=== PATIENT | male | born 1935 | race Caucasian/White ===

== ENCOUNTER → 2017-03-12 | Outpatient (CLI) | payer OTHER ==
[~2017-03-12] MED LIST: 'PARAFON FORTE500 M1 PO; ASPIRIN81 MG PO; CENTRUM1 TAB PO; CLINDAMYCIN150 MG PO; FISH OIL500 M1 PO; NAPROSYN500 MG PO; PRAVASTATIN; PRAVASTATIN SOD80 MG PO
[2017-03-12 10:26] LABS: BASO # 0.1 10*3/uL (0.0-0.1); BASO % 0.7 % (0.0-1.0); EOS # 0.2 10*3/uL (0.0-0.4); HEMOGLOBIN 15.4 g/dl (14.0-18.0); LYMPH # 3.1 10*3/uL (1.3-4.4); LYMPH % 37.7 % (27.0-41.0); MEAN CELL VOLUME 93.5 fl (80.0-94.0); MEAN CORPUSCULAR HGB 31.3 pg (27.0-31.0); MEAN CORPUSCULAR HGB CONC 33.5 g/dl (33.0-37.0); MEAN PLATELET VOLUME 10.7 fl (9.6-12.3); MONO # 0.8 10*3/uL (0.1-1.0); MONO % 9.3 % (3.0-9.0); NEUT # 4.1 10*3/uL (2.3-7.9); NEUT % 49.9 % (47.0-73.0); PLATELET COUNT AUTOMATED 146 10*3/uL (130-400); RED BLOOD COUNT 4.92 10*6/uL (4.50-5.90); RED CELL DISTRI WIDTH 13.2 % (0-14.5); WHITE BLOOD COUNT 8.2 10*3/uL (4.8-10.8)
[2017-03-12 11:08] LABS: ALBUMIN 3.4 gm/dl (3.1-4.5); ALKALINE PHOSPHATASE 86 U/L (45-117); BILIRUBIN, TOTAL 0.5 mg/dl (0.2-1.0); BUN 25 mg/dl (7-24); CARBON DIOXIDE 29 mmol/L (21-32); CHLORIDE 106 mmol/L (98-107); CHOLESTEROL 154 mg/dL (<200); EST GLOM FILT AFRICAN AMERICAN > 60 ml/min; GLUCOSE 92 mg/dL (65-99); HDL CHOLESTEROL 72 mg/dl (40-60); LDL CHOLESTEROL 64 mg/dL (9-159); POTASSIUM 4.4 mmol/L (3.5-5.1); SGOT/AST 23 IU/L (3-35); SGPT/ALT 27 U/L (12-78); SODIUM 142 mmol/L (136-145); TOTAL PROTEIN 7.3 gm/dL (6.4-8.2); TRIGLYCERIDES 90 mg/dl (<150); VLDL CHOLESTEROL 18 mg/dL (6-40)
[2017-03-13 08:13] LABS: PROSTATE SPECIFIC AG FREE 1.07 ng/mL; PSA % FREE 20.6 % (.)
== END | disposition home or self-care (01) ==
LOC: LAB 10:09
PROVIDERS: Internal Medicine
DX: I25.10 Atherosclerotic heart disease of native coronary artery without angina pectoris (principal); E78.00 Pure hypercholesterolemia, unspecified; N40.1 Benign prostatic hyperplasia with lower urinary tract symptoms

== ENCOUNTER → 2017-06-03 | Outpatient (CLI) | payer OTHER ==
[2017-06-03 09:03] LABS: CREATININE 0.88 mg/dL (0.70-1.30)
== END | disposition home or self-care (01) ==
LOC: CT 05-29 09:00 → LAB 03:35 → CT 09:00 → LAB 09:00
PROVIDERS: Internal Medicine
DX: K40.91 Unilateral inguinal hernia, without obstruction or gangrene, recurrent (principal); N20.0 Calculus of kidney; K76.89 Other specified diseases of liver

== ENCOUNTER 2017-12-09 20:15 | Inpatient (IN) | payer OTHER ==
[~2017-12-09] VITALS: Ht 185.4 cm; Wt 80.9 kg
--- NOTE | ~2017-12-09 | CON ---
[place], [place] REPORT OF CONSULTATION NAME: [facility]URGESS [id number] UNIT #: [id number] ROOM: 406 DOCTOR: TAM MORA MD BIRTHDATE: [birth year] DOS: 12/10/2017 REASON FOR CONSULTATION: Abnormal electrocardiogram, elevated troponin. HISTORY OF PRESENT ILLNESS: The patient is an 82-year-old man who remains very healthy and active in general. He does have a history of coronary artery disease, which was first documented in 2008 during a preoperative assessment prior to knee surgery. His electrocardiogram was abnormal. A stress test showed inferoapical ischemia with an ejection fraction of 56%. Cardiac catheterization showed modest mid LAD stenosis with a 70% stenosis of the proximal circumflex and diffuse disease of the right coronary artery. There were extensive left to right collaterals present. The right coronary artery was not amenable to percutaneous revascularization and the patient had no ischemic symptoms. He received a bare metal stent to the proximal circumflex and subsequently underwent knee replacement without complications. He has remained asymptomatic since that time. He denies any chest pain. Recently, he has been under considerable stress because of his 's illness. She has esophageal cancer. They have taken many trips to [place] for diagnosis and therapy of her condition, which continues to be active. The patient was otherwise well until about 4 days ago when he began having symptoms of congestion, cough and dyspnea. Over the last few days this did worsen. Yesterday, he was so weak that he could not get out of bed even though he had to go to the bathroom. He slid to the floor and could not get off the floor. A neighbor helped him back into the bed, but later when he needed the use the toilet again, once again he was too weak to get out of bed, therefore emergency medical services were called. He was brought to the Emergency Room where his white count was elevated at 14,500, hemoglobin was normal at 15.7. His temperature went as high as 102.8. A chest x-ray did show left lingular and left lower lobe pneumonia and he was hospitalized. His laboratory studies also did show a mild elevation in troponin. His electrocardiogram was interpreted as showing a left bundle-branch block and therefore Cardiology was consulted. Overnight, the patient has been given fluids and antibiotics and does feel better. He states that he has no chest pain. His cough is minimal and his sputum production is slight. He denies any palpitations, lightheadedness or syncope and he thinks that his strength is improving. His initial troponin level was 0.066 and has increased to 0.149 overnight. PAST MEDICAL HISTORY: Includes: 1. Hyperlipidemia. 2. Coronary artery disease, first documented in 2008 when he presented with an asymptomatic abnormal preoperative EKG. 3. Stress test showing inferoapical ischemia with ejection fraction 56% in 2009. 4. Cardiac catheterization in 2009 showed a 50-60% mid LAD stenosis with a 70% stenosis of the proximal circumflex. There was severe diffuse disease of the [place], [place] REPORT OF CONSULTATION NAME: LEATHA BURGESS UNIT #: [id number] ROOM: 406 DOCTOR: TAM MORA MD BIRTHDATE: [birth year] right coronary artery, leading to a total occlusion of the right PDA, extensive left to right collaterals were present. The patient underwent elective bare metal stenting to the proximal circumflex. 5. Uneventful bilateral knee replacements, 2009. 6. Stress test, 05/30/2014 showed normal wall motion and overall left ventricular systolic function. The patient did have inferior, inferoseptal, inferolateral and apical ischemia, but this was consistent with his coronary anatomy and he was managed medically. MEDICATIONS: Prior to this admission: Aspirin 81 mg per day, Tessalon Perles 100 mg q. 8 hours, multivitamin once a day, omega-3 fish oil 500 mg daily, pravastatin 80 mg at bedtime and prednisone 20 mg b.i.d. ALLERGIES: He lists an allergy to VICODIN (HYDROCODONE). REVIEW OF SYSTEMS: The patient denies diplopia or loss of vision. He is generally weak, but denies focal weakness. He denies syncope or lightheadedness. He does have some chest congestion and a minimally productive cough. He denies fevers or chills. He denies orthopnea or PND. He denies any nausea, but he does have decreased appetite. He denies any vomiting, hemoptysis or hematemesis. He denies change in bowel or bladder habits and denies any blood in his stools or urine. He denies any skin rashes. He denies peripheral edema. He denies any heat or cold intolerance. He denies polydipsia or polyuria. The remainder of the review of systems is negative except as noted above. FAMILY HISTORY: The patient's father of unknown causes. His mother of cancer. A brother and sister both have heart disease. SOCIAL HISTORY: The patient is and lives with his . She currently is being treated for esophageal cancer. He does not consume alcohol and does not smoke or use illicit drugs. PHYSICAL EXAMINATION: GENERAL: The patient is a well-nourished white male who looks younger than his stated age. VITAL SIGNS: Pulse is 73 and regular, blood pressure is 130/60. He is afebrile. He weighs 80.8 kg and has a body mass index of 23.5. HEENT: Normocephalic and atraumatic. Extraocular muscles are intact. Sclerae are clear. Pupils are equal, round and react to light. The oral mucosa is moist. Tongue is midline. NECK: Supple. He has no jugular distention. Carotids are full. I heard no bruits. He had no neck or supraclavicular masses. No thyromegaly. LUNGS: Respirations are unlabored. His chest is clear superiorly. He does have a few crackles at the bases bilaterally. I heard no wheezes. He had no presacral edema or chest wall tenderness. HEART: Has a regular rhythm. He has a fourth heart sound, but no third heart sound or murmur. The PMI is not displaced. There is no precordial heave, lift or thrill. ABDOMEN: Soft and normally active without masses, organomegaly or bruits. [place], [place] REPORT OF CONSULTATION NAME: [facility]URGESS [facility]: [id number] UNIT #: [id number] ROOM: [facility] DOCTOR: TAM MORA MD BIRTHDATE: [birth year] EXTREMITIES: Showed no clubbing, cyanosis or edema. There is no Homans sign. Pedal pulses are full and equal bilaterally. LABORATORY DATA: I reviewed his electrocardiogram, it shows a nonspecific intraventricular conduction delay, which is similar to what was seen when I last saw him in the office on 10/10/2016. IMPRESSIONS: 1. Left lower lobe and lingular pneumonia. 2. Elevated troponin, most likely this is due to demand ischemia from his pneumonia. 3. Coronary artery disease with diffuse right coronary artery stenosis and occlusion of the right posterior descending artery. The patient has an extensive collateral network. He did receive an angioplasty to the circumflex and now is being managed medically. 4. Hyperlipidemia. PLAN: I think that the primary problem for this hospitalization is pneumonia and is being treated appropriately. We will continue to observe him in the hospital, but no acute cardiac workup or change in his management is indicated at this time. We thank the hospitalist physicians for asking our advice regarding his care. TAM MORA MD CM:CONSTR:REPORT OF CONSULTATION 0947 12/10/17 1012 interface
[2017-12-09 20:22] VITALS: BP 151/73
[2017-12-09] MEDS ORDERED: PREDNISONE20 M1 PO (20:24)
[2017-12-09 21:12] LABS: HEMATOCRIT 46.2 % (42.0-52.0); HEMOGLOBIN 15.7 g/dl (14.0-18.0); MEAN CORPUSCULAR HGB 31.3 pg (27.0-31.0); MEAN PLATELET VOLUME 10.7 fl (9.6-12.3); PLATELET COUNT AUTOMATED 115 10*3/uL (130-400); RED BLOOD COUNT 5.02 10*6/uL (4.50-5.90); RED CELL DISTRI WIDTH 13.5 % (0-14.5); WHITE BLOOD COUNT 14.5 10*3/uL (4.8-10.8)
[2017-12-09 21:30] LABS: ALBUMIN 3.4 gm/dl (3.1-4.5); ALKALINE PHOSPHATASE 82 U/L (45-117); BUN 28 mg/dl (7-24); CHLORIDE 101 mmol/L (98-107); CREATININE 1.25 mg/dL (0.70-1.30); POTASSIUM 3.7 mmol/L (3.5-5.1); SGOT/AST 51 IU/L (3-35); SGPT/ALT 30 U/L (12-78); SODIUM 137 mmol/L (136-145); TOTAL PROTEIN 7.5 gm/dL (6.4-8.2)
[2017-12-09 21:32] VITALS: BP 136/61
[2017-12-09 21:34] LABS: TROPONIN I 0.066 ng/ml (<0.045)
[2017-12-09 21:35] LABS: TOTAL CELLS COUNTED 100 #CELLS
[2017-12-09 21:38] LABS: BURR CELLS FEW; PLATELET SUFFICIENCY LOW (NORMAL); POLYCHROMASIA SLIGHT
[2017-12-09 21:43] VITALS: BP 150/66
[2017-12-09 22:20] VITALS: BP 143/68
[2017-12-09 22:52] VITALS: BP 137/77
[2017-12-09 23:32] VITALS: BP 128/61
[2017-12-10] VITALS: BP 128/68
[2017-12-10 01:00] VITALS: BP 120/80
[2017-12-10 02:53] LABS: BASO % 0.2 % (0.0-1.0); LYMPH % 17.4 % (27.0-41.0); MEAN CELL VOLUME 92.5 fl (80.0-94.0); MEAN CORPUSCULAR HGB CONC 34.6 g/dl (33.0-37.0); MEAN PLATELET VOLUME 10.9 fl (9.6-12.3); MONO # 1.1 10*3/uL (0.1-1.0); MONO % 9.6 % (3.0-9.0); NEUT # 8.3 10*3/uL (2.3-7.9); NEUT % 72.5 % (47.0-73.0); PLATELET COUNT AUTOMATED 97 10*3/uL (130-400); RED BLOOD COUNT 4.25 10*6/uL (4.50-5.90); RED CELL DISTRI WIDTH 13.3 % (0-14.5); WHITE BLOOD COUNT 11.4 10*3/uL (4.8-10.8)
[2017-12-10 02:55] LABS: HEMATOCRIT 39.3 % (42.0-52.0); HEMOGLOBIN 13.6 g/dl (14.0-18.0)
[2017-12-10 03:08] LABS: ALBUMIN 2.5 gm/dl (3.1-4.5); ALKALINE PHOSPHATASE 62 U/L (45-117); BUN 26 mg/dl (7-24); CHLORIDE 107 mmol/L (98-107); CREATININE 1.01 mg/dL (0.70-1.30); PHOSPHOROUS 3.4 mg/dL (2.5-4.9); POTASSIUM 3.5 mmol/L (3.5-5.1); SGOT/AST 63 IU/L (3-35); SGPT/ALT 27 U/L (12-78); SODIUM 140 mmol/L (136-145); TOTAL PROTEIN 5.8 gm/dL (6.4-8.2)
[2017-12-10 03:16] LABS: THYROID STIM HORMONE (HS) 0.275 uIU/ml (0.358-4.75)
[2017-12-10] MEDS ORDERED: TESSALON PERLE100 MG PO (07:27)
[2017-12-10 07:31] LABS: VITAMIN D, 25-HYDROXY 28.8 ng/mL (30-100)
[2017-12-10 08:00] VITALS: BP 130/59
[2017-12-10 12:00] VITALS: BP 123/53
[2017-12-10 16:00] VITALS: BP 119/56
[2017-12-10 20:08] VITALS: BP 133/51
[2017-12-11] VITALS: BP 125/68
[2017-12-11 06:25] LABS: BASO % 0.1 % (0.0-1.0); HEMATOCRIT 38.7 % (42.0-52.0); HEMOGLOBIN 13.1 g/dl (14.0-18.0); LYMPH # 1.7 10*3/uL (1.3-4.4); LYMPH % 11.3 % (27.0-41.0); MEAN CELL VOLUME 92.1 fl (80.0-94.0); MEAN CORPUSCULAR HGB 31.2 pg (27.0-31.0); MEAN CORPUSCULAR HGB CONC 33.9 g/dl (33.0-37.0); MEAN PLATELET VOLUME 11.4 fl (9.6-12.3); MONO % 7.1 % (3.0-9.0); NEUT # 11.8 10*3/uL (2.3-7.9); NEUT % 80.9 % (47.0-73.0); PLATELET COUNT AUTOMATED 98 10*3/uL (130-400); RED CELL DISTRI WIDTH 13.6 % (0-14.5); WHITE BLOOD COUNT 14.5 10*3/uL (4.8-10.8)
[2017-12-11 06:55] LABS: ALBUMIN 2.3 gm/dl (3.1-4.5); CHLORIDE 110 mmol/L (98-107); POTASSIUM 3.1 mmol/L (3.5-5.1); SODIUM 143 mmol/L (136-145)
[2017-12-11 07:04] LABS: ALKALINE PHOSPHATASE 61 U/L (45-117); BUN 30 mg/dl (7-24); CREATININE 0.86 mg/dL (0.70-1.30); FREE T4 1.35 ng/dl (0.76-1.46); SGOT/AST 82 IU/L (3-35); SGPT/ALT 44 U/L (12-78); TOTAL PROTEIN 5.9 gm/dL (6.4-8.2)
[2017-12-11 08:00] VITALS: BP 127/55
[2017-12-11 12:00] VITALS: BP 146/80
[2017-12-11 16:00] VITALS: BP 156/74
[2017-12-11 20:00] VITALS: BP 143/61
[2017-12-12] VITALS: BP 140/61
[2017-12-12 07:02] LABS: BASO % 0.3 % (0.0-1.0); HEMATOCRIT 38.9 % (42.0-52.0); HEMOGLOBIN 13.6 g/dl (14.0-18.0); LYMPH # 1.1 10*3/uL (1.3-4.4); LYMPH % 8.8 % (27.0-41.0); MEAN CELL VOLUME 91.7 fl (80.0-94.0); MEAN CORPUSCULAR HGB 32.1 pg (27.0-31.0); MEAN PLATELET VOLUME 11.3 fl (9.6-12.3); MONO # 0.7 10*3/uL (0.1-1.0); MONO % 5.6 % (3.0-9.0); NEUT % 83.9 % (47.0-73.0); PLATELET COUNT AUTOMATED 110 10*3/uL (130-400); RED BLOOD COUNT 4.24 10*6/uL (4.50-5.90); RED CELL DISTRI WIDTH 13.8 % (0-14.5); WHITE BLOOD COUNT 11.9 10*3/uL (4.8-10.8)
[2017-12-12 07:27] LABS: ALBUMIN 2.5 gm/dl (3.1-4.5); BUN 29 mg/dl (7-24); CHLORIDE 109 mmol/L (98-107); POTASSIUM 3.9 mmol/L (3.5-5.1); SGOT/AST 58 IU/L (3-35); SODIUM 144 mmol/L (136-145)
[2017-12-12 07:29] LABS: ALKALINE PHOSPHATASE 63 U/L (45-117); CREATININE 0.74 mg/dL (0.70-1.30); SGPT/ALT 51 U/L (12-78); TOTAL PROTEIN 6.2 gm/dL (6.4-8.2)
[2017-12-12 08:00] VITALS: BP 157/80
[2017-12-12] MEDS ORDERED: OMNICEF300 MG PO (09:44)
[2017-12-12] MEDS ORDERED: FLONASE ALLERG9.9 ML NAS (09:44)
[2017-12-12] MEDS ORDERED: AZITHROMYCIN500 M2 PO (09:44)
[2017-12-12] MEDS ORDERED: PREDNISONE10 MG PO (09:44)
[2017-12-12 12:00] VITALS: BP 151/90
== END 2017-12-12 14:32 | disposition home or self-care (01) | DRG 871 ==
LOC: ED 20:15 → 4E 22:54 → EDHOLD 22:54 → 4E 23:13
PROVIDERS: Internal Medicine; Internal Medicine Hospice and Palliative Medicine; Nurse Practitioner Family
DX: A41.9 Sepsis, unspecified organism (principal); I21.A1 Myocardial infarction type 2; J15.6 Pneumonia due to other Gram-negative bacteria; E87.2 Acidosis; D69.6 Thrombocytopenia, unspecified; E86.0 Dehydration; D64.9 Anemia, unspecified; E44.1 Mild protein-calorie malnutrition; I44.7 Left bundle-branch block, unspecified; Z68.23 Body mass index [BMI] 23.0-23.9, adult; R65.20 Severe sepsis without septic shock; R74.8 Abnormal levels of other serum enzymes; I25.10 Atherosclerotic heart disease of native coronary artery without angina pectoris; E78.00 Pure hypercholesterolemia, unspecified; R73.9 Hyperglycemia, unspecified; E55.9 Vitamin D deficiency, unspecified; E87.6 Hypokalemia; I10 Essential (primary) hypertension; Z96.653 Presence of artificial knee joint, bilateral; Z96.1 Presence of intraocular lens; E78.5 Hyperlipidemia, unspecified; Z88.8 Allergy status to other drugs, medicaments and biological substances; Z79.899 Other long term (current) drug therapy; Z79.82 Long term (current) use of aspirin; Z98.61 Coronary angioplasty status; Z98.42 Cataract extraction status, left eye; Z98.41 Cataract extraction status, right eye; Z82.49 Family history of ischemic heart disease and other diseases of the circulatory system; Z80.8 Family history of malignant neoplasm of other organs or systems

== ENCOUNTER → 2018-03-06 | Outpatient (CLI) | payer OTHER ==
[~2018-03-06] MED LIST changes: +AZITHROMYCIN500 M2 PO; +CIPRO250 MG PO; +CIPRO500 MG PO; +FISH OIL 1,0001 EAC5 PO; -FISH OIL500 M1 PO; +FLONASE ALLERG9.9 ML NAS; +OMNICEF300 MG PO; +PREDNISONE10 MG PO; +PREDNISONE20 M1 PO; +Percocet 325 MG1 TAB PO; +TESSALON PERLE100 MG PO
[2018-03-06 11:44] LABS: BASO # 0.1 10*3/uL (0.0-0.1); BASO % 0.8 % (0.0-1.0); EOS # 0.2 10*3/uL (0.0-0.4); EOS % 2.4 % (1.0-4.0); HEMATOCRIT 46.3 % (42.0-52.0); HEMOGLOBIN 15.4 g/dl (14.0-18.0); LYMPH # 2.9 10*3/uL (1.3-4.4); LYMPH % 34.8 % (27.0-41.0); MEAN CELL VOLUME 95.1 fl (80.0-94.0); MEAN CORPUSCULAR HGB 31.6 pg (27.0-31.0); MEAN CORPUSCULAR HGB CONC 33.3 g/dl (33.0-37.0); MEAN PLATELET VOLUME 10.7 fl (9.6-12.3); MONO # 0.8 10*3/uL (0.1-1.0); NEUT # 4.4 10*3/uL (2.3-7.9); NEUT % 51.9 % (47.0-73.0); PLATELET COUNT AUTOMATED 134 10*3/uL (130-400); RED BLOOD COUNT 4.87 10*6/uL (4.50-5.90); RED CELL DISTRI WIDTH 13.4 % (0-14.5); WHITE BLOOD COUNT 8.4 10*3/uL (4.8-10.8)
[2018-03-06 11:55] LABS: BILIRUBIN NEGATIVE (NEGATIVE); BLOOD 3+ (NEGATIVE); CLARITY CLOUDY (CLEAR); COLOR YELLOW (YELLOW); GLUCOSE NEGATIVE (NEGATIVE); KETONE NEGATIVE (NEGATIVE); LEUKO ESTERASE NEGATIVE (NEGATIVE); NITRITE NEGATIVE (NEGATIVE); UROBILINOGEN 0.2 E.U./dl (0.2-1.0)
[2018-03-06 12:09] LABS: INTERNATIONAL NORM RATIO 0.9 (2.0-3.5)
[2018-03-06 12:10] LABS: BUN 21 mg/dl (7-24); CHLORIDE 106 mmol/L (98-107); CREATININE 0.92 mg/dL (0.70-1.30); POTASSIUM 4.6 mmol/L (3.5-5.1); SODIUM 142 mmol/L (136-145)
[2018-03-06 12:27] LABS: RBC 31-40 rbc/hpf (0-2)
[2018-03-06 12:28] LABS: BACTERIA TRACE
== END | disposition home or self-care (01) ==
LOC: LAB 09:36
PROVIDERS: Surgery
DX: R79.89 Other specified abnormal findings of blood chemistry (principal); Z98.890 Other specified postprocedural states

== ENCOUNTER → 2018-03-12 | Day surgery (SDC) | payer OTHER ==
[2018-03-12] VITALS (8 sets, daily range): BP systolic 115–148; BP diastolic 57–87
[~2018-03-12] VITALS: Ht 185.4 cm; Wt 77.6 kg
--- NOTE | ~2018-03-12 | O ---
[place], [place] OPERATIVE NOTE [id number] UNIT #: [id number] ROOM: DOCTOR: GANESH AMBRIZ MD BIRTHDATE: [birth year] DOS: 03/12/2018 PREOPERATIVE DIAGNOSIS: Right inguinal hernia. POSTOPERATIVE DIAGNOSIS: Right inguinal hernia. PROCEDURE: Right inguinal hernia repair with plug (medium). SURGEON: Ganesh Ambriz MD COACH OPERATOR: GIBSON. ANESTHESIA: General. INDICATIONS: This is an 83-year-old gentleman with a history of a right inguinal hernia, who is here for the above-mentioned procedure. The procedure and its complications were explained to the patient in detail preoperatively. Complications that were discussed included but were not limited to, bleeding, recurrence, prolonged postoperative pain, damage to underlying vital structures and infection. He agreed to proceed. DESCRIPTION OF PROCEDURE: After identifying the patient, the patient was brought to the operating suite and laid in the supine position. After general anesthesia was induced, a time-out procedure was called, and the parts were then painted and draped in the usual sterile fashion. An incision in the right groin was marked parallel to the right inguinal ligament. The incision was made with the help of a knife and deepened in layers. The external oblique aponeurosis was incised in the line of its fibers. The cord structures were identified and encircled with the help of Donavon drain. Upon further dissection, an incomplete hernial sac was identified, which was dissected away from the cord structures. It was then transfixed with the help of a 3-0 Vicryl suture and the excess sac was then incised and sent for histopathological diagnosis. The remnant of the sac was allowed to retract back into the abdominal cavity. A medium plug was then placed in the internal ring. At this point, the weak floor of the inguinal canal was strengthened by approximating the upturned part of the inguinal ligament inferiorly to the conjoined tendon superiorly with the help of #1 Prolene in an interrupted fashion. Thereafter, the cord structures were replaced back into the inguinal canal after the Donavon drain was removed. The external oblique aponeurosis was approximated with the help of 0 Vicryl in a running fashion. The subcutaneous tissue was approximated with the help of 3-0 Vicryl in a running fashion and the edges of the skin were approximated with the help of 4-0 Vicryl in a subcuticular running fashion. Dressings were placed. The patient tolerated the procedure well and was extubated uneventfully and brought back to the recovery in a stable fashion. There were no complications. Dr. Ganesh Ambriz, the attending surgeon, was present throughout the operating case. [place], [place] OPERATIVE NOTE NAME: LEATHA BURGESS UNIT #: [id number] ROOM: DOCTOR: GANESH AMBRIZ MD BIRTHDATE: [birth year] Ganesh Ambriz MD CM:OPRECORD:OPERATIVE NOTE 1124 1218 GANESH AMBRIZ MD 03/12/18 1217 interface
== END | disposition home or self-care (01) ==
LOC: SDC 03-06 10:15
DX: K40.90 Unilateral inguinal hernia, without obstruction or gangrene, not specified as recurrent (principal); I25.10 Atherosclerotic heart disease of native coronary artery without angina pectoris; Z98.890 Other specified postprocedural states; Z79.899 Other long term (current) drug therapy; Z95.5 Presence of coronary angioplasty implant and graft; E78.00 Pure hypercholesterolemia, unspecified; Z96.653 Presence of artificial knee joint, bilateral; Z82.49 Family history of ischemic heart disease and other diseases of the circulatory system; Z88.8 Allergy status to other drugs, medicaments and biological substances

== ENCOUNTER 2018-03-18 11:51 | Emergency (ER) | payer OTHER ==
[~2018-03-18] VITALS: Ht 185.4 cm; Wt 78.0 kg
[~2018-03-18 11:51] MED LIST changes: -CIPRO250 MG PO; -CIPRO500 MG PO
[2018-03-18 12:32] LABS: BILIRUBIN NEGATIVE (NEGATIVE); BLOOD 3+ (NEGATIVE); CLARITY CLOUDY (CLEAR); COLOR YELLOW (YELLOW); GLUCOSE NEGATIVE (NEGATIVE); KETONE 1+ (NEGATIVE); LEUKO ESTERASE 1+ (NEGATIVE); NITRITE NEGATIVE (NEGATIVE); UROBILINOGEN 0.2 E.U./dl (0.2-1.0)
[2018-03-18 13:08] LABS: RBC TNTC rbc/hpf (0-2)
[2018-03-18 13:09] LABS: BACTERIA 1+
[2018-03-18] MEDS ORDERED: CIPRO250 MG PO (13:58)
== END 2018-03-18 14:38 | disposition home or self-care (01) ==
LOC: ED 11:51
PROVIDERS: Nurse Practitioner Family
DX: R33.9 Retention of urine, unspecified (principal); Z88.8 Allergy status to other drugs, medicaments and biological substances; Z79.899 Other long term (current) drug therapy; Z95.5 Presence of coronary angioplasty implant and graft; Z96.653 Presence of artificial knee joint, bilateral

== ENCOUNTER 2018-03-26 11:04 | Emergency (ER) | payer OTHER ==
[~2018-03-26] VITALS: Ht 185.4 cm; Wt 75.3 kg
[~2018-03-26 11:04] MED LIST changes: +CIPRO250 MG PO
[2018-03-26 12:03] LABS: BILIRUBIN NEGATIVE (NEGATIVE); BLOOD 3+ (NEGATIVE); CLARITY CLOUDY (CLEAR); COLOR YELLOW (YELLOW); GLUCOSE NEGATIVE (NEGATIVE); KETONE NEGATIVE (NEGATIVE); LEUKO ESTERASE NEGATIVE (NEGATIVE); NITRITE NEGATIVE (NEGATIVE); SPECIFIC GRAVITY 1.015 (1.005-1.030); UROBILINOGEN 0.2 E.U./dl (0.2-1.0)
[2018-03-26 12:13] LABS: BASO # 0.1 10*3/uL (0.0-0.1); BASO % 0.6 % (0.0-1.0); EOS # 0.2 10*3/uL (0.0-0.4); EOS % 1.8 % (1.0-4.0); HEMATOCRIT 43.5 % (42.0-52.0); HEMOGLOBIN 14.5 g/dl (14.0-18.0); LYMPH # 2.2 10*3/uL (1.3-4.4); LYMPH % 22.3 % (27.0-41.0); MEAN CELL VOLUME 94.2 fl (80.0-94.0); MEAN CORPUSCULAR HGB 31.4 pg (27.0-31.0); MEAN CORPUSCULAR HGB CONC 33.3 g/dl (33.0-37.0); MONO # 0.9 10*3/uL (0.1-1.0); NEUT # 6.4 10*3/uL (2.3-7.9); PLATELET COUNT AUTOMATED 162 10*3/uL (130-400); RED BLOOD COUNT 4.62 10*6/uL (4.50-5.90); RED CELL DISTRI WIDTH 12.8 % (0-14.5); WHITE BLOOD COUNT 9.7 10*3/uL (4.8-10.8)
[2018-03-26] MEDS ORDERED: CIPRO500 MG PO (12:15)
[2018-03-26 12:27] LABS: ALBUMIN 3.2 gm/dl (3.1-4.5); ALKALINE PHOSPHATASE 80 U/L (45-117); BUN 38 mg/dl (7-24); CHLORIDE 110 mmol/L (98-107); POTASSIUM 3.9 mmol/L (3.5-5.1); SGOT/AST 13 IU/L (3-35); SGPT/ALT 22 U/L (12-78); SODIUM 146 mmol/L (136-145); TOTAL PROTEIN 6.8 gm/dL (6.4-8.2)
[2018-03-26 12:30] LABS: RBC TNTC rbc/hpf (0-2)
[2018-03-26 12:31] LABS: BACTERIA 1+
== END 2018-03-26 12:47 | disposition home or self-care (01) ==
LOC: ED 11:04
PROVIDERS: Nurse Practitioner
DX: R33.9 Retention of urine, unspecified (principal); Z88.5 Allergy status to narcotic agent; Z79.82 Long term (current) use of aspirin; Z79.899 Other long term (current) drug therapy

== ENCOUNTER → 2018-03-31 | Outpatient (CLI) | payer OTHER ==
[~2018-03-31] MED LIST changes: +CIPRO500 MG PO
== END | disposition home or self-care (01) ==
LOC: CT 14:45
DX: K57.30 Diverticulosis of large intestine without perforation or abscess without bleeding (principal); N20.0 Calculus of kidney; N32.9 Bladder disorder, unspecified

== ENCOUNTER 2018-04-17 11:00 | Emergency (ER) | payer OTHER ==
[~2018-04-17] VITALS: Ht 185.4 cm; Wt 77.1 kg
[2018-04-17 11:19] LABS: BILIRUBIN 1+ (NEGATIVE); BLOOD 3+ (NEGATIVE); CLARITY CLOUDY (CLEAR); GLUCOSE NEGATIVE (NEGATIVE); KETONE TRACE (NEGATIVE); LEUKO ESTERASE 2+ (NEGATIVE); NITRITE POSITIVE (NEGATIVE); SPECIFIC GRAVITY 1.015 (1.005-1.030)
[2018-04-17 11:23] LABS: COLOR RED (YELLOW)
[2018-04-17 11:30] LABS: BACTERIA 4+
[2018-04-17 11:31] LABS: RBC TNTC rbc/hpf (0-2)
[2018-04-17 11:56] LABS: BASO % 0.4 % (0.0-1.0); EOS # 0.3 10*3/uL (0.0-0.4); EOS % 3.7 % (1.0-4.0); HEMATOCRIT 40.6 % (42.0-52.0); HEMOGLOBIN 13.4 g/dl (14.0-18.0); LYMPH # 2.6 10*3/uL (1.3-4.4); LYMPH % 28.2 % (27.0-41.0); MEAN CELL VOLUME 93.5 fl (80.0-94.0); MEAN CORPUSCULAR HGB 30.9 pg (27.0-31.0); MEAN PLATELET VOLUME 11.1 fl (9.6-12.3); MONO # 1.1 10*3/uL (0.1-1.0); MONO % 11.4 % (3.0-9.0); NEUT # 5.2 10*3/uL (2.3-7.9); PLATELET COUNT AUTOMATED 122 10*3/uL (130-400); RED BLOOD COUNT 4.34 10*6/uL (4.50-5.90); RED CELL DISTRI WIDTH 12.9 % (0-14.5); WHITE BLOOD COUNT 9.3 10*3/uL (4.8-10.8)
[2018-04-17 12:13] LABS: ALBUMIN 3.2 gm/dl (3.1-4.5); ALKALINE PHOSPHATASE 73 U/L (45-117); BUN 19 mg/dl (7-24); CHLORIDE 105 mmol/L (98-107); CREATININE 0.78 mg/dL (0.70-1.30); POTASSIUM 3.9 mmol/L (3.5-5.1); SGOT/AST 15 IU/L (3-35); SGPT/ALT 17 U/L (12-78); SODIUM 140 mmol/L (136-145); TOTAL PROTEIN 6.4 gm/dL (6.4-8.2)
== END 2018-04-17 11:31 | disposition home or self-care (01) ==
LOC: ED 11:00
PROVIDERS: Nurse Practitioner Family
DX: R31.9 Hematuria, unspecified (principal); I25.10 Atherosclerotic heart disease of native coronary artery without angina pectoris; E78.00 Pure hypercholesterolemia, unspecified; Z88.6 Allergy status to analgesic agent; Z79.899 Other long term (current) drug therapy

== ENCOUNTER → 2019-01-27 | Outpatient (CLI) | payer OTHER ==
--- NOTE | ~2019-01-27 | EKG ---
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
[2019-01-27 11:48] LABS: BILIRUBIN NEGATIVE (NEGATIVE); BLOOD 3+ (NEGATIVE); CLARITY SL CLOUDY (CLEAR); COLOR YELLOW (YELLOW); GLUCOSE NEGATIVE (NEGATIVE); KETONE TRACE (NEGATIVE); LEUKO ESTERASE 2+ (NEGATIVE); NITRITE POSITIVE (NEGATIVE); SPECIFIC GRAVITY 1.015 (1.005-1.030); UROBILINOGEN 0.2 E.U./dl (0.2-1.0)
[2019-01-27 11:49] LABS: BASO # 0.1 10*3/uL (0.0-0.1); BASO % 0.7 % (0.0-1.0); EOS # 0.1 10*3/uL (0.0-0.4); EOS % 1.6 % (1.0-4.0); HEMATOCRIT 46.6 % (42.0-52.0); HEMOGLOBIN 15.5 g/dl (14.0-18.0); LYMPH # 2.6 10*3/uL (1.3-4.4); LYMPH % 31.6 % (27.0-41.0); MEAN CELL VOLUME 94.7 fl (80.0-94.0); MEAN CORPUSCULAR HGB 31.5 pg (27.0-31.0); MEAN CORPUSCULAR HGB CONC 33.3 g/dl (33.0-37.0); MEAN PLATELET VOLUME 11.2 fl (9.6-12.3); MONO # 0.9 10*3/uL (0.1-1.0); MONO % 10.4 % (3.0-9.0); NEUT # 4.5 10*3/uL (2.3-7.9); NEUT % 55.5 % (47.0-73.0); PLATELET COUNT AUTOMATED 140 10*3/uL (130-400); RED BLOOD COUNT 4.92 10*6/uL (4.50-5.90); RED CELL DISTRI WIDTH 13.4 % (0-14.5); WHITE BLOOD COUNT 8.2 10*3/uL (4.8-10.8)
[2019-01-27 11:58] LABS: ACT PARTIAL THROMBO TIME 23.4 SECONDS (20.8-31.5)
[2019-01-27 12:18] LABS: ALBUMIN 3.3 gm/dl (3.1-4.5); ALKALINE PHOSPHATASE 86 U/L (45-117); BUN 19 mg/dl (7-24); CHLORIDE 107 mmol/L (98-107); CREATININE 0.95 mg/dL (0.70-1.30); POTASSIUM 4.2 mmol/L (3.5-5.1); SGOT/AST 21 IU/L (3-35); SGPT/ALT 25 U/L (12-78); SODIUM 141 mmol/L (136-145); TOTAL PROTEIN 7.1 gm/dL (6.4-8.2)
[2019-01-27 12:19] LABS: HDL CHOLESTEROL 75 mg/dl (40-60)
[2019-01-27 12:21] LABS: CHOLESTEROL 168 mg/dL (<200); LDL CHOLESTEROL 79 mg/dL (9-159); TRIGLYCERIDES 71 mg/dl (<150); VLDL CHOLESTEROL 14 mg/dL (6-40)
[2019-01-27 13:05] LABS: BACTERIA 3+; EPITHELIAL CELLS 15-20; RBC 41-50 rbc/hpf (0-2); WBC TNTC wbc/hpf (0-5)
== END | disposition home or self-care (01) ==
LOC: LAB 11:15
PROVIDERS: Nurse Practitioner Primary Care; Urology
DX: Z01.818 Encounter for other preprocedural examination (principal); Z12.5 Encounter for screening for malignant neoplasm of prostate; D40.0 Neoplasm of uncertain behavior of prostate; E78.00 Pure hypercholesterolemia, unspecified; R31.9 Hematuria, unspecified

== ENCOUNTER 2021-02-18 10:36 | Emergency (ER) | payer MEDICARE ==
[2021-02-18] MEDS ORDERED: FLONASE ALLERG9.9 ML NAS (12:08)
== END 2021-02-18 12:29 | disposition home or self-care (01) ==
LOC: ED 10:36
DX: J30.9 Allergic rhinitis, unspecified (principal); Z20.822 Contact with and (suspected) exposure to COVID-19; I25.10 Atherosclerotic heart disease of native coronary artery without angina pectoris; E78.00 Pure hypercholesterolemia, unspecified; I25.2 Old myocardial infarction; Z88.6 Allergy status to analgesic agent; Z79.2 Long term (current) use of antibiotics; Z79.82 Long term (current) use of aspirin; Z79.899 Other long term (current) drug therapy; Z96.653 Presence of artificial knee joint, bilateral; Z95.5 Presence of coronary angioplasty implant and graft

== ENCOUNTER 2021-03-10 20:35 | Emergency (ER) | payer MEDICARE ==
[~2021-03-10] VITALS: Ht 180.3 cm; Wt 75.0 kg
[2021-03-10 21:07] LABS: BASO % 0.3 % (0.0-1.0); EOS # 0.1 10*3/uL (0.0-0.4); EOS % 0.5 % (1.0-4.0); HEMATOCRIT 41.3 % (42.0-52.0); LYMPH # 1.7 10*3/uL (1.3-4.4); LYMPH % 13.1 % (27.0-41.0); MEAN CORPUSCULAR HGB 28.9 pg (27.0-31.0); MEAN CORPUSCULAR HGB CONC 31.7 g/dl (33.0-37.0); MEAN PLATELET VOLUME 10.2 fl (9.6-12.3); MONO % 7.8 % (3.0-9.0); NEUT # 9.9 10*3/uL (2.3-7.9); NEUT % 77.9 % (47.0-73.0); PLATELET COUNT AUTOMATED 254 10*3/uL (130-400); RED BLOOD COUNT 4.54 10*6/uL (4.50-5.90); RED CELL DISTRI WIDTH 13.6 % (0-14.5); WHITE BLOOD COUNT 12.8 10*3/uL (4.8-10.8)
[2021-03-10 21:27] LABS: ALBUMIN 2.5 gm/dl (3.1-4.5); CREATININE 1.69 mg/dL (0.70-1.30); POTASSIUM 4.6 mmol/L (3.5-5.1); TOTAL PROTEIN 7.5 gm/dL (6.4-8.2)
[2021-03-11 00:44] LABS: BILIRUBIN Negative (Negative); BLOOD 1+ (Negative); CLARITY Cloudy (Clear); COLOR Yellow (Yellow); GLUCOSE Negative (Negative); KETONE 1+ (Negative); LEUKO ESTERASE 3+ (Negative); NITRITE Positive (Negative); UROBILINOGEN 0.2 E.U./dl (0.0-1.0)
[2021-03-11 01:19] LABS: BACTERIA 3+; WBC 41-50 wbc/hpf (0-5)
[2021-03-11] MEDS ORDERED: ZOFRAN4 MG PO (01:45)
[2021-03-11] MEDS ORDERED: CIPRO500 MG PO (01:45)
== END 2021-03-11 02:37 | disposition home or self-care (01) ==
LOC: ED 20:35
PROVIDERS: Physician Assistant
DX: A41.9 Sepsis, unspecified organism (principal); N39.0 Urinary tract infection, site not specified; N17.9 Acute kidney failure, unspecified; E88.09 Other disorders of plasma-protein metabolism, not elsewhere classified; R11.2 Nausea with vomiting, unspecified; Z88.6 Allergy status to analgesic agent; Z79.899 Other long term (current) drug therapy; Z79.82 Long term (current) use of aspirin; Z96.653 Presence of artificial knee joint, bilateral; Z98.890 Other specified postprocedural states; Z95.818 Presence of other cardiac implants and grafts

== ENCOUNTER → 2021-03-16 | Outpatient (CLI) | payer MEDICARE ==
[~2021-03-16] MED LIST changes: +ZOFRAN4 MG PO
[2021-03-16 11:48] LABS: ACT PARTIAL THROMBO TIME 27.6 SECONDS (20.0-32.1); INTERNATIONAL NORM RATIO 1.1 (2.0-3.5)
== END | disposition home or self-care (01) ==
LOC: LAB 10:52
PROVIDERS: ATTEND Urology
DX: Z01.818 Encounter for other preprocedural examination (principal); I44.7 Left bundle-branch block, unspecified; R31.9 Hematuria, unspecified